=== PATIENT | female | born 1955 | race Caucasian/White ===

== ENCOUNTER 2018-02-03 08:58 | Emergency (ER) | payer OTHER ==
[~2018-02-03] VITALS: Ht 157.5 cm; Wt 108.9 kg
--- NOTE | 2018-02-03 09:10 | NUR ---
AAOX3, BIBRA 860 AND YOSELIN ON 5150, FOR SI D/T STRESS. 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 PATIENT WAS ALSO LATE IN HER MORTGAGE PAYMENTS AND ITS IN FORECLOSURE. SHE TOLD THE [employer] THAT SHE WOULD RATHER KILL HERSELF INSTEAD OF BEING HOMELESS. PATIENT DENIES SI/HI UPON ARRIVAL TO ER. PATIENT WAS AGITATED. SI PRECAUTION IS IN PLACE. RR IS EVEN AND UNLABORED WITH NAD NOTED. SKIN IS WARM AND DRY. DR FLETCHER AT BS FOR EVAL.
--- NOTE | 2018-02-03 10:34 | NUR ---
CHRISTINE B[place] AT BEDSIDE FOR EVAL
--- NOTE | 2018-02-03 11:08 | NUR ---
Dr Ross at for an update and re-eval. Provided referral. Patient denies SI/HI. AAOX3. Patient discharged to home in stable condition. Written and verbal after care instructions given. Patient verbalizes understanding of instruction.
[2018-02-03 11:14] VITALS: BP 148/82
== END 2018-02-03 11:15 | disposition home or self-care (01) ==
LOC: ER 09:00
DX: R45.851 Suicidal ideations (principal); E11.9 Type 2 diabetes mellitus without complications; I10 Essential (primary) hypertension; Z59.0 Homelessness
CPT/HCPCS: 99283; A4606; Z7610